=== PATIENT | male | born 2000 | race Caucasian/White ===

== ENCOUNTER 2019-04-11 14:03 | Emergency (ER) | payer OTHER ==
[2019-04-11] MEDS ORDERED: Sodium Chloride 0.9% 10 ML Syringe FLUSH PRN (14:40)
[2019-04-11] MEDS ORDERED: Ketorolac 30 MG/ML SDV IVPUSH ONE (14:40)
--- NOTE | 2019-04-11 14:42 | EDM.PDOC ---
ED HPI GENERAL MEDICAL PROBLEM - General Chief Complaint: Back Pain or Injury Stated Complaint: LOWER BACK PAIN Time Seen by Provider: 04/11/19 14:31 Source of Information: Reports: Patient History Limitations: Reports: No Limitations - History of Present Illness INITIAL COMMENTS - FREE TEXT/NARRATIVE: 18-year-old male presents for evaluation and treatment of low back pain. Patient reports sudden onset approximately an hour and half ago. 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 He reports sudden onset of severe back pain in his low back. No radiation into his flanks, abdomen or groin. He denies any urinary symptoms such as hematuria or dysuria. No radiation into his legs. No numbness or tingling into his legs. He has not tried any medications prior to arrival in the ER. He denies any recent fevers, chills, nausea or vomiting. patient is concerned as he has a history of kidney disease and kidney stones. He states 3 years ago he was hospitalized for 10 days. (this was in [place]) He states that he was in acute renal failure and his creatinine went up into the 7s. It has now returned closer to normal limits, less than 2, but is still elevated. He is unaware if he has any kidney stones at this time. Treatments INVENTORY AUDITOR: Reports: Other (see below) Other Treatments INVENTORY AUDITOR: none Lower Back Pain Score (Numeric/FACES): 7 - Related Data Allergies Allergy/AdvReac Type Severity Reaction Status Date / Time No Known Allergies Allergy Verified 04/11/19 14:13 Home Meds: Home Meds Acetaminophen/HYDROcodone [Bayard 325-5 MG] 1 tab PO Q6H PRN #5 tablet 04/11/19 [ Rx] Cetirizine HCl [Zyrtec] 10 mg PO DAILY 04/11/19 [History] Levothyroxine [Synthroid] 100 mcg PO DAILY 04/11/19 [History] Losartan [Cozaar] 25 mg PO DAILY 04/11/19 [History] Montelukast [Singulair] 10 mg PO DAILY 04/11/19 [History] NIFEdipine [Procardia] 60 mg PO BID 04/11/19 [History] Omeprazole 20 mg PO BEDTIME 04/11/19 [History] Orphenadrine [Norflex] 100 mg PO BID PRN #20 tab 04/11/19 [Rx] Past Medical History Cardiovascular History: Reports: Hypertension Respiratory History: Reports: Other (See Below) Other Respiratory History: seasonal allergies Genitourinary History: Reports: Other (See Below) Other Genitourinary History: stage 2 kidney disease; proteinuria Endocrine/Metabolic History: Reports: Hypothyroidism - Past Surgical History Other Male Surgeries/Procedures: kidney biopsy Social & Family History - Tobacco Use Smoking Status *Q: Never Smoker - Caffeine Use Caffeine Use: Reports: Tea - Recreational Drug Use Recreational Drug Use: No ED ROS GENERAL - Review of Systems Review Of Systems: See Below Constitutional: Denies: Fever, Chills GI/Abdominal: Denies: Abdominal Pain, Nausea, Vomiting : Denies: Dysuria, Flank Pain, Hematuria Musculoskeletal: Reports: Back Pain (low back) ED EXAM,LOWER BACK PAIN/INJURY - Physical Exam Exam: See Below Exam Limited By: No Limitations General Appearance: Alert, WD/WN, Mild Distress, Obese Ears: Normal External Exam Nose: Normal Inspection Throat/Mouth: Normal Inspection, Normal Lips, Normal Voice, No Airway Compromise Neck: Normal Inspection, Non-Tender, Full Range of Motion Respiratory/Chest: No Respiratory Distress, Lungs Clear, Normal Breath Sounds Cardiovascular: Normal Peripheral Pulses, Regular Rate, Rhythm, No Murmur Back Exam: No: CVA Tenderness (L), CVA Tenderness (R), Vertebral Tenderness Extremities: Normal Inspection Neurological: Alert, Normal Mood/Affect, Normal Dorsiflexion, Normal Plantar Flexion, Normal Gait Psychiatric: Normal Affect, Normal Mood Skin Exam: Warm, Dry, Normal Color Course - Vital Signs Last Recorded V/S: Last Vital Signs Temp 98.4 F 04/11/19 14:19 Pulse 83 04/11/19 14:19 Resp 20 04/11/19 14:19 BP 114/78 04/11/19 14:19 Pulse Ox 98 04/11/19 14:19 - Orders/Labs/Meds Orders: Active Orders 24 hr Category Date Time Status Peripheral IV Care [RC] . DIRECTED Care 04/11/19 14:41 Active Sodium Chloride 0.9% [Saline Flush] Med 04/11/19 14:40 Active 10 ml FLUSH ASDIRECTED PRN Peripheral IV Insertion Adult [OM.PC] Routine Oth 04/11/19 14:40 Ordered Medication Orders Sodium Chloride (Saline Flush) 10 ml FLUSH ASDIRECTED PRN PRN Reason: Keep Vein Open Labs: Laboratory Tests 04/11/19 04/11/19 04/11/19 Range/Units 14:50 15:10 15:10 WBC 9.06 (4.23-9.07) K/mm3 RBC 5.68 (4.63-6.08) M/mm3 Hgb 16.6 (13.7-17.5) gm/L Hct 48.2 (40.1-51.0) % MCV 84.9 (79.0-92.2) fl MCH 29.2 (25.7-32.2) pg MCHC 34.4 (32.2-35.5) g/dl RDW Std Deviation 41.8 (35.1-43.9) fL Plt Count 334 (163-337) K/mm3 MPV 10.1 (9.4-12.3) fl Neut % (Auto) 60.3 (34.0-67.9) % Lymph % (Auto) 23.3 (21.8-53.1) % [place] % (Auto) 9.7 (5.3-12.2) % Eos % (Auto) 6.5 (0.8-7.0) Baso % (Auto) 0.1 (0.1-1.2) % Neut # (Auto) 5.46 H (1.78-5.38) K/mm3 Lymph # (Auto) 2.11 (1.32-3.57) K/mm3 [place] # (Auto) 0.88 H (0.30-0.82) K/mm3 Eos # (Auto) 0.59 H (0.04-0.54) K/mm3 Baso # (Auto) 0.01 (0.01-0.08) K/mm3 Sodium 139 (136-145) mEq/L Potassium 3.7 (3.5-5.1) mEq/L Chloride 102 (98-107) mEq/L Carbon Dioxide 24 (21-32) mEq/L Anion Gap 16.7 H (5-15) BUN 18 (7-18) mg/dL Creatinine 2.0 H (0.7-1.3) mg/dL Est Cr Clr Drug Dosing 64.67 mL/min Estimated GFR (MDRD) 43 (>60) mL/min BUN/Creatinine Ratio 9.0 L (14-18) Glucose 95 (74-106) mg/dL Calcium 9.7 (8.5-10.1) mg/dL Total Bilirubin 0.7 (0.2-1.0) mg/dL AST 33 (15-37) U/L ALT 57 (16-63) U/L Alkaline Phosphatase 103 (46-116) U/L C-Reactive Protein 1.2 H* (<1.0) mg/dL Total Protein 8.1 (6.4-8.2) g/dl Albumin 3.9 (3.4-5.0) g/dl Globulin 4.2 gm/dL Albumin/Globulin Ratio 0.9 L (1-2) Urine Color Yellow (Yellow) Urine Appearance Clear (Clear) Urine pH 7.0 (5.0-8.0) Ur Specific [place] 1.015 (1.005-1.030) Urine Protein 2+ H (Negative) Urine Glucose (UA) Negative (Negative) Urine Ketones Negative (Negative) Urine Occult Blood 2+ H (Negative) Urine Nitrite Negative (Negative) Urine Bilirubin Negative (Negative) Urine Urobilinogen 0.2 (0.2-1.0) Ur Leukocyte Esterase Negative (Negative) Urine RBC 0-5 (0-5) /hpf Urine WBC 0-5 (0-5) /hpf Ur Squamous Epith Cells 0-5 (0-5) /hpf Urine Bacteria Rare (FEW) /hpf Urine Mucus Not seen (FEW) /hpf Meds: Medications Generic Name Dose Route Start Last Admin Trade Name Freq PRN Reason Stop Dose Admin Sodium Chloride 10 ml 04/11/19 14:40 Saline Flush FLUSH ASDIRECTED PRN Keep Vein Open Discontinued Medications Generic Name Dose Route Start Last Admin Trade Name Freq PRN Reason Stop Dose Admin Ketorolac Tromethamine 30 mg 04/11/19 14:40 04/11/19 15:48 Toradol IVPUSH 04/11/19 14:41 Not Given ONETIME ONE Ketorolac Tromethamine 15 mg 04/11/19 14:53 04/11/19 15:49 Toradol IVPUSH 04/11/19 14:54 Not Given ONETIME ONE - Radiology Interpretation Free Text/Narrative:: CT abdomen and pelvis Technique: Multiple axial sections were obtained from above the dome of the diaphragm inferiorly through the pubic symphysis. Intravenous and oral contrast not utilized. Study has been performed as a ureteral stone protocol. Findings: 2 nodules are identified within the right lung base. One nodule appears calcified compatible with granuloma. The other nodule most likely represents a noncalcified granuloma. No acute parenchymal change is seen within either visualized lung base. Liver shows no focal parenchymal abnormality. Gallbladder contains no calcified gallstones. Spleen appears normal. Adrenal glands show no nodule. Pancreas is within normal limits. Aorta shows no aneurysm. No retroperitoneal adenopathy is seen Calcifications are seen within the right kidney compatible with very small nonobstructing calculi. Left kidney shows several minimal nonobstructing calculi. No ureteral dilatation is seen. No ureteral calculi are identified. Aorta shows no aneurysm. No retroperitoneal adenopathy or mesenteric abnormalities are seen. Small fat-containing umbilical hernia is noted. No pelvic mass or adenopathy is seen. No free fluid or inflammatory change is seen. Appendix felt to be visualized and is normal in size. No bowel dilatation is seen. Bone window settings were reviewed which shows slight degenerative change within the spine. Impression: 1. Small nonobstructing renal calculi within both kidneys. 2. No ureteral stone is appreciated. No ureteral dilatation is seen. 3. Other findings which are felt to be incidental. 4. No acute abnormality is appreciated on noncontrast CT study of the abdomen and pelvis. - Re-Assessments/Exams Free Text/Narrative Re-Assessment/Exam: 04/11/19 16:07 reviewed the labs and imaging with the patient. Patient decliend toradol. Will discharge home with symptomatic care for muscularskeletal pain. Discharge instruciotns as documented. Departure - Departure Time of Disposition: 16:08 Disposition: Home, Self-Care 01 Condition: Good Clinical Impression: Lumbago - Discharge Information *PRESCRIPTION DRUG MONITORING PROGRAM REVIEWED*: No *COPY OF PRESCRIPTION DRUG MONITORING REPORT IN PATIENT JANESSA: No Prescriptions: Acetaminophen/HYDROcodone [Bayard 325-5 MG] 1 tab PO Q6H PRN #5 tablet PRN Reason: Pain (Severe 7-10) Orphenadrine [Norflex] 100 mg PO BID PRN #20 tab PRN Reason: Pain Referrals: PCP,Not In Area [Primary Care Provider] - Forms: ED Department Discharge Additional Instructions: Recommend using ice, heat or a topical product such as icyhot or benday. May also try OTC lidocaine patch. Activity as tolerated. Avoid being inactive as this can worsen musculoskeletal pain. recommend OTC tylenol for pain. Do not take more than 4 grams of tylenol from all sources in one day. May take the norflex, a muscle relaxer twice a day as needed. For severe pain you may take norco one tab PO every 6 hours. Bayard is habit forming, take as few of these as needed to control your pain. Do not drive or operate machinery within 10 hours of taking norco. Follow-up with family medicine if not much better in 2 weeks. Please return to the ER should your symptoms change or worsen./ - My Orders Last 24 Hours: My Active Orders 04/11/19 14:40 Sodium Chloride 0.9% [Saline Flush] 10 ml FLUSH ASDIRECTED PRN Peripheral IV Insertion Adult [OM.PC] Routine 04/11/19 14:41 Peripheral IV Care [RC] . DIRECTED - Assessment/Plan Last 24 Hours: My Active Orders 04/11/19 14:40 Sodium Chloride 0.9% [Saline Flush] 10 ml FLUSH ASDIRECTED PRN Peripheral IV Insertion Adult [OM.PC] Routine 04/11/19 14:41 Peripheral IV Care [RC] . DIRECTED
[2019-04-11] MEDS ORDERED: Ketorolac 15 MG/ML SDV IVPUSH ONE (14:53)
--- NOTE | 2019-04-11 15:24 | CT ---
CT abdomen and pelvis Technique: Multiple axial sections were obtained from above the dome of the diaphragm inferiorly through the pubic symphysis. Intravenous and oral contrast not utilized. Study has been performed as a ureteral stone protocol. Findings: 2 nodules are identified within the right lung base. One nodule appears calcified compatible with granuloma. The other nodule most likely represents a noncalcified granuloma. No acute parenchymal change is seen within either visualized lung base. Liver shows no focal parenchymal abnormality. Gallbladder contains no calcified gallstones. Spleen appears normal. Adrenal glands show no nodule. Pancreas is within normal limits. Aorta shows no aneurysm. No retroperitoneal adenopathy is seen Calcifications are seen within the right kidney compatible with very small nonobstructing calculi. Left kidney shows several minimal nonobstructing calculi. No ureteral dilatation is seen. No ureteral calculi are identified. Aorta shows no aneurysm. No retroperitoneal adenopathy or mesenteric abnormalities are seen. Small fat-containing umbilical hernia is noted. No pelvic mass or adenopathy is seen. No free fluid or inflammatory change is seen. Appendix felt to be visualized and is normal in size. No bowel dilatation is seen. Bone window settings were reviewed which shows slight degenerative change within the spine. Impression: 1. Small nonobstructing renal calculi within both kidneys. 2. No ureteral stone is appreciated. No ureteral dilatation is seen. 3. Other findings which are felt to be incidental. 4. No acute abnormality is appreciated on noncontrast CT study of the abdomen and pelvis. Diagnostic code #2
== END 2019-04-11 16:40 | disposition home or self-care (01) ==
LOC: JD.ED 14:03
DX: M54.5 Low back pain (principal); E03.9 Hypothyroidism, unspecified; I10 Essential (primary) hypertension; Z79.899 Other long term (current) drug therapy
CPT/HCPCS: 36415; 74176; 74176-26; 80053; 81001; 85025; 86140; 96374; 99284-25